=== PATIENT | female | born 1950 | race Caucasian/White ===

== ENCOUNTER 2017-02-21 16:05 | Emergency (ER) | payer MEDICARE, OTHER ==
[2017-02-21] MEDS ORDERED: NORMAL SALINE 1000 ML 1,000 ML IV ONE (16:40)
--- NOTE | 2017-02-21 16:40 | ER Document Report ---
ED Medical Screen (RME) - General Mode of Arrival: Ambulatory Information source: Patient TRAVEL OUTSIDE OF THE [place] IN LAST 30 DAYS: No <TROY AVALOS - Last Filed: 02/21/17 16:52> <RAQUEL MAC - Last Filed: 02/21/17 19:09> - General Chief Complaint: Upper Abdominal Pain Stated Complaint: BACK PAIN Time Seen by Provider: 02/21/17 16:27 Notes: Patient presents to the emergency department today secondary to upper abdominal pain. Patient states 2 weeks ago she was seen at [facility] for lower abdominal pain and she was diagnosed with diverticulitis and put on Cipro/ Flagyl which she finished about a week ago. Patient states the lower abdominal pain seems to have eased off however now she is having this upper abdominal pain that radiates to her back and shoulder blades. Patient denies any urinary symptoms. (TROY AVALOS) - Related Data Allergies/Adverse Reactions: codeine Allergy (Verified 02/21/17 16:24) Past Medical History Renal/ Medical History: Denies: Hx Peritoneal Dialysis <TROY AVALOS - Last Filed: 02/21/17 16:52> Review of Systems - Review of Systems Gastrointestinal: See HPI, Abdominal pain <TROY AVALOS - Last Filed: 02/21/17 16:52> Physical Exam - General General appearance: Other - Appears uncomfortable - Abdominal Tenderness: Tender - Epigastric and RUQ <TROY AVALOS - Last Filed: 02/21/17 16:52> Course <TROY AVALOS - Last Filed: 02/21/17 16:52> - Laboratory Result Diagrams: 02/21/17 17:42 02/21/17 17:42 <RAQUEL MAC - Last Filed: 02/21/17 19:09> - Re-evaluation Re-evalutation: 02/21/17 19:09 I personally performed the services described in the documentation, reviewed and edited the documentation which was dictated to the scribe in my presence, and it accurately records my words and actions. (RAQUEL MAC) - Vital Signs Vital signs: Temp Pulse Resp BP Pulse Ox 97.6 F 72 18 159/65 H 99 02/21/17 16:21 02/21/17 16:21 02/21/17 16:21 02/21/17 16:21 02/21/17 16:21 - Laboratory Laboratory results interpreted by me: 02/21/17 17:42 Direct Bilirubin 0.5 H Scribe Documentation - Scribe Written by Scribe:: Bashir Saucedo, 02/21/2017 1657 acting as scribe for :: Vee <TROY AVALOS - Last Filed: 02/21/17 16:52>
[2017-02-21 18:08] LABS: ABSOLUTE BASOPHILS # (AUTO) 0.1 10^3/uL (0.0-0.2); ABSOLUTE EOSINOPHILS # (AUTO) 0.3 10^3/uL (0.0-0.6); ABSOLUTE LYMPHOCYTES (AUTO) 2.6 10^3/uL (0.5-4.7); ABSOLUTE MONOCYTES (AUTO) 0.6 10^3/uL (0.1-1.4); ABSOLUTE NEUT (AUTO) 3.2 10^3/uL (1.7-8.2); BASOPHILS % (AUTO) 0.9 % (0-2); EOSINOPHILS % (AUTO) 4.2 % (0-6); HEMATOCRIT 41.6 % (36.0-47.0); HEMOGLOBIN 14.3 g/dL (12.0-15.5); HGB HCT DIFFERENCE 1.3; LYMPHOCYTES % (AUTO) 38.5 % (13-45); MEAN CORPUSCULAR HEMOGLOBIN 30.4 pg (27.0-33.4); MEAN CORPUSCULAR HGB CONC 34.5 g/dL (32.0-36.0); MEAN CORPUSCULAR VOLUME 88 fl (80-97); MONOCYTES % (AUTO) 9.4 % (3-13); RED BLOOD COUNT 4.72 10^6/uL (3.72-5.28); RED CELL DISTRIBUTION WIDTH 12.2 % (11.5-14.0); WHITE BLOOD COUNT 6.9 10^3/uL (4.0-10.5)
[2017-02-21] MEDS ORDERED: LIDOCAINE 2% VISCOUS SOLN 20 ML UDCUP PO ONE (18:25)
[2017-02-21] MEDS ORDERED: MAG HYDROX/AL HYDROX/SIMETH SUSP 30 ML UDCUP PO ONE (18:25)
[2017-02-21] MEDS ORDERED: METOCLOPRAMIDE HCL ORAL SOLN 10 MG/10 ML UDCUP PO ONE (18:25)
[2017-02-21 18:32] LABS: ALANINE AMINOTRANSFERASE 34 U/L (9-52); ALBUMIN 4.4 g/dL (3.5-5.0); ALKALINE PHOSPHATASE 88 U/L (38-126); ANION GAP 10 (5-19); ASPARTATE AMINO TRANSFERASE 33 U/L (14-36); BILIRUBIN,DIRECT 0.5 mg/dL (0.0-0.4); BILIRUBIN,TOTAL 0.7 mg/dL (0.2-1.3); BLOOD UREA NITROGEN 13 mg/dL (7-20); CALCIUM 9.7 mg/dL (8.4-10.2); CARBON DIOXIDE 26 mmol/L (22-30); CHLORIDE 105 mmol/L (98-107); CREATINE KINASE 90 U/L (30-135); CREATININE RESULT 0.61 mg/dL (0.52-1.25); GLUCOSE 83 mg/dL (75-110); LIPASE 83.1 U/L (23-300); SODIUM 140.7 mmol/L (137-145)
[2017-02-21 18:42] LABS: CREATINE KINASE MB 0.61 ng/mL (<4.55)
[2017-02-21 18:43] LABS: TROPONIN I < 0.012 ng/mL
--- NOTE | 2017-02-21 18:53 | ER Document Report ---
ED General - General Chief Complaint: Upper Abdominal Pain Stated Complaint: BACK PAIN Time Seen by Provider: 02/21/17 16:27 Mode of Arrival: Ambulatory Notes: Patient is a 66-year-old female with past medical history of recent colitis treated with Cipro and Flagyl finished one week ago, surgical history of a hysterectomy who presents with acute onset of epigastric and right upper quadrant abdominal pain relating through to her back. States this started earlier today and got worse after she ate lunch. No history of similar symptoms in the past. Notes associated nausea without vomiting. Cramping, constant, moderate to severe pain in the upper abdomen. Nothing has been noted to improve her symptoms. No associated diarrhea, chest pain, shortness of breath. She has not seen her primary care doctor regarding today's concerns. TRAVEL OUTSIDE OF THE [place] IN LAST 30 DAYS: No - Related Data Allergies/Adverse Reactions: codeine Allergy (Verified 02/21/17 16:24) Past Medical History - General Information source: Patient - Social History Smoking Status: Never Smoker Frequency of alcohol use: None Drug Abuse: None Lives with: Spouse/Significant other Family History: Reviewed & Not Pertinent Renal/ Medical History: Denies: Hx Peritoneal Dialysis Past Surgical History: Reports: Hx Breast Surgery - right mastectomy Review of Systems - Review of Systems Notes: Constitutional: Negative for fever. HENT: Negative for sore throat. Eyes: Negative for visual changes. Cardiovascular: Negative for chest pain. Respiratory: Negative for shortness of breath. Gastrointestinal: Positive for abdominal pain, negative for vomiting or diarrhea. Genitourinary: Negative for dysuria. Musculoskeletal: Negative for back pain. Skin: Negative for rash. Neurological: Negative for headaches, weakness or numbness. 10 point ROS negative except as marked above and in HPI. Physical Exam - Vital signs Vitals: Temp Pulse Resp BP Pulse Ox 97.6 F 72 18 159/65 H 99 02/21/17 16:21 02/21/17 16:21 02/21/17 16:21 02/21/17 16:21 02/21/17 16:21 Interpretation: Hypertensive Notes: PHYSICAL EXAMINATION: GENERAL: Well-appearing, well-nourished and in no acute distress. HEAD: Atraumatic, normocephalic. EYES: Pupils equal round and reactive to light, extraocular movements intact, sclera anicteric, conjunctiva are normal. ENT: nares patent, oropharynx clear without exudates. Moist mucous membranes. NECK: Normal range of motion, supple without lymphadenopathy LUNGS: Breath sounds clear to auscultation bilaterally and equal. No wheezes rales or rhonchi. HEART: Regular rate and rhythm without murmurs ABDOMEN: Soft, mild tenderness the right upper and right lower quadrant without rebound or guarding. Negative Anthony's sign. Bowel sounds present. EXTREMITIES: Normal range of motion, no pitting or edema. No cyanosis. NEUROLOGICAL: No focal neurological deficits. Moves all extremities spontaneously and on command. PSYCH: Normal mood, normal affect. SKIN: Warm, Dry, normal turgor, no rashes or lesions noted. Course - Re-evaluation Re-evalutation: 02/21/17 18:53 Patient presents with epigastric abdominal pain with associated reflux symptoms most consistent with likely gastritis. Patient does have right upper and right lower quadrant abdominal tenderness on exam Right upper quadrant ultrasound does not demonstrate any evidence of acute cholecystitis or cholelithiasis. Lipase is normal. No LFT changes. Based on history and exam, I do not suspect ACS, pulmonary embolus, SBO, mesenteric ischemia, acute pancreatitis, biliary pathology, or an abdominal aortic dissection. However, patient did have persistent right upper and right lower quadrant abdominal pain exam despite efforts to reduce her pain using a GI cocktail and famotidine. Given the absence of any alternative explanation at this time and her persistence of pain , will proceed with CT of the abdomen and pelvis to evaluate for an ongoing of her prior colitis, perforation, less likely mesenteric ischemia. 02/21/17 20:44 CT scan is unremarkable without any evidence of acute pathology. Vessels are noted be patent and clear without evidence of stenosis to suggest an acute mesenteric ischemia. Repeat abdominal exam remains without any findings. She has tolerated oral intake without difficulty. Have a plate to the patient at this point her symptoms are most consistent with gastritis but that she needs to be vigilant to monitor for any worsening symptoms and is to follow closely with her primary care doctor for repeat abdominal exam in the next 24-48 hours. I've also encouraged close outpatient follow-up with her GI doctor.At this time will discharge with return precautions and follow-up recommendations. Verbal discharge instructions given a the bedside and opportunity for questions given. Medication warnings reviewed. Patient is in agreement with this plan and has verbalized understanding of return precautions and the need for primary care follow-up in the next 24-72 hours. - Vital Signs Vital signs: Temp Pulse Resp BP Pulse Ox 97.6 F 72 18 159/65 H 99 02/21/17 16:21 02/21/17 16:21 02/21/17 16:21 02/21/17 16:21 02/21/17 16:21 - Laboratory Result Diagrams: 02/21/17 17:42 02/21/17 17:42 Laboratory results interpreted by me: 02/21/17 17:42 Direct Bilirubin 0.5 H - Diagnostic Test Radiology reviewed: Reports reviewed - EKG Interpretation by Me Additional EKG results interpreted by me: 02/21/17 20:44 Normal sinus rhythm. Rate 71. No ST elevations or depressions. QTC is 426. Discharge - Discharge Clinical Impression: Abdominal pain Qualifiers: Abdominal location: upper abdomen, unspecified Qualified Code(s): R10.10 - Upper abdominal pain, unspecified Condition: Good Disposition: HOME, SELF-CARE Additional Instructions: Your symptoms appear to be most consistent with stomach or upper intestinal irritation. Your evaluation here today has not demonstrated an alternative cause for your symptoms. Please begin taking famotidine 40 mg in the morning and 40 mg at night. This medicine can be purchased directly [id number]. You may also take medicine such as Pepto-Bismol or Tums to assist with your pain. Please follow closely with your primary care doctor in the next 24-48 hours regarding today's emergency department visit. Please return immediately if you develop persistent vomiting, worsening pain, again having bloody bowel movements, develop a fever greater than 100.4F, or have any other symptoms that are worrisome to you. Prescriptions: Sucralfate [Carafate 1 gm Tablet] 1 gm PO ACHS #120 tablet
[2017-02-21] MEDS ORDERED: FAMOTIDINE 20 MG TABLET PO ONE (18:56)
[2017-02-21] MEDS ORDERED: ONDANSETRON HCL INJ/PF 4 MG/2 ML SDV IV ONE (19:14)
[2017-02-21] MEDS ORDERED: MORPHINE SULFATE 10 MG/ML INJ IV PRN (19:14)
[2017-02-21 19:15] LABS: APPEARANCE,URINE CLEAR; BILIRUBIN,URINE NEGATIVE (NEGATIVE); GLUCOSE, URINE NEGATIVE (NEGATIVE); KETONES,URINE NEGATIVE (NEGATIVE); LEUKOCYTE ESTERASE,URINE NEGATIVE (NEGATIVE); NITRITE,URINE NEGATIVE (NEGATIVE); PROTEIN,URINE NEGATIVE (NEGATIVE); URINE SPECIFIC GRAVITY 1.004; UROBILINOGEN,URINE NEGATIVE mg/dL (<2.0)
--- NOTE | 2017-02-21 20:31 | EKG REPORT ---
SEVERITY:- NORMAL ECG - SINUS RHYTHM : Confirmed by: Delfino Coats 21-Feb-2017 20:31:21
[2017-02-21 21:23] VITALS: BP 120/52
[2017-02-21] MEDS ORDERED: FLUCONAZOLE 100 MG TABLET PO ONE (21:51)
== END 2017-02-21 21:55 | disposition home or self-care (01) ==
LOC: ER 16:05
DX: R10.10 Upper abdominal pain, unspecified (principal); Z88.6 Allergy status to analgesic agent; Z90.710 Acquired absence of both cervix and uterus
CPT/HCPCS: 93005; 94640; 99284; 36415; 82553; 82550; 83690; 85025; 80053; 81001; 84484; 71020; 76705; 74177; 93010; A9270 ×3; J3490; J2270; J2405; J7030

== ENCOUNTER 2017-02-28 09:18 | Day surgery (SDC) | payer MEDICARE, OTHER ==
[~2017-02-28 09:18] MED LIST: PROPOFOL INJ 200 MG/20 ML VIAL IV ONE
[2017-02-28 11:53] VITALS: BP 139/78
--- NOTE | 2017-02-28 13:14 | Operative Report ---
Operative Report DATE OF SURGERY: 02/28/17 Operative Report: The risks, benefits and alternatives of the procedure including risks of bleeding, perforation requiring surgery are explained to the patient detail and informed consent was obtained. Patient was taken back to the endoscopy suite and placed in the left, lateral decubital position. Timeout was called. Conscious sedation medications provided. A rectal examination was done which did not reveal any masses, tears or fissures. An Olympus endoscope was inserted into the patient's rectum. The scope was then gradually advanced all the way to the cecum. The patient has a very difficult sigmoid area. Patient has significant diverticulosis in the area with peridiverticular hypertrophy. This along with the fact that there is some redundancy may be area difficult to traverse. However once this area was passed the scope was then easily advanced all the way to the cecum. The cecum was identified by the usual anatomical landmarks including the ileocecal valve as well as the appendiceal office. Photodocumentation was obtained. The scope was then sequentially pulled back. The rest segments of the colon including the ascending colon, hepatic flexure, transverse colon, splenic flexure, descending colon and finally to the rectosigmoid portions of the colon. Retroflexion maneuver was performed. The risks benefits and alternatives of the procedure explained to the patient in detail and informed consent is obtained.A GIF Olympus video scope was inserted into the patient's mouth and hypopharynx, the esophagus is identified intubated and insufflated, the scope was then advanced through the esophagus stomach and duodenum, retroflexion maneuver is done, the esophagus stomach and first and second portions of the duodenum examined PREOPERATIVE DIAGNOSIS: Epigastric pain. Abdominal pain. Known history of diverticulosis POSTOPERATIVE DIAGNOSIS: Severe diverticulosis, no evidence of diverticulitis. Internal hemorrhoids. Right-sided inflammation status post biopsy. Gastritis status post biopsy to rule out Helicobacter pylori OPERATION: Colonoscopy with biopsy. EGD with biopsy SURGEON: ASHLEY REA ANESTHESIA: LMAC TISSUE REMOVED OR ALTERED: As described above COMPLICATIONS: None. ESTIMATED BLOOD LOSS: None. INTRAOPERATIVE FINDINGS: As noted above. No polyps noted. No AVMs noted. PROCEDURE: Patient tolerated the procedure well. No immediate postprocedure complications are noted. Patient discharged in good condition. Discharge date 02/28/2017. Discharge diet: Regular. Discharge activity: Regular. 2-3 week follow-up to discuss findings. We will wait on biopsies. Patient is instructed to call the office or proceed to the emergency room should there be any further problems or questions.
== END 2017-02-28 11:43 | disposition home or self-care (01) ==
LOC: END 09:18
PROVIDERS: ATTEND Internal Medicine Gastroenterology
PROC: 0DB68ZX Excision of Stomach, Via Natural or Artificial Opening Endoscopic, Diagnostic (ICD-10-PCS; principal; 2017-02-28 13:00)
PROC: 0DBF8ZX Excision of Right Large Intestine, Via Natural or Artificial Opening Endoscopic, Diagnostic (ICD-10-PCS; 2017-02-28 13:00)
DX: K57.30 Diverticulosis of large intestine without perforation or abscess without bleeding (principal); K64.8 Other hemorrhoids; K52.9 Noninfective gastroenteritis and colitis, unspecified; K29.50 Unspecified chronic gastritis without bleeding; I10 Essential (primary) hypertension; K21.9 Gastro-esophageal reflux disease without esophagitis; Z79.899 Other long term (current) drug therapy; Z88.5 Allergy status to narcotic agent
CPT/HCPCS: 43239; 45380; 88342 ×2; 88305 ×2; J2704; 740

== ENCOUNTER 2017-04-01 14:00 | Observation (INO) | payer MEDICARE, OTHER ==
[~2017-04-01 14:00] MED LIST changes: +AMINOPHYLLINE INJ/PF 250 MG/10 ML SDV IV ONE; -PROPOFOL INJ 200 MG/20 ML VIAL IV ONE; +REGADENOSON INJ 0.4 MG/5 ML DISP.SYRIN IV ONE
--- NOTE | 2017-04-01 15:16 | ER Document Report ---
ED Medical Screen (RME) - General Mode of Arrival: Ambulatory Information source: Patient TRAVEL OUTSIDE OF THE [place] IN LAST 30 DAYS: No <MARIO HENNESSY - Last Filed: 04/01/17 15:11> <JEWELL NICOLAS - Last Filed: 04/02/17 14:40> - General Chief Complaint: Chest Pain Stated Complaint: CHEST PAIN Time Seen by Provider: 04/01/17 15:10 Notes: 66 yo female presents to ed for left sided chest pain with radition mid epigastrium and back. She had similar symptoms a month ago and was dx with diverticulosis and diverticulitis. Started on cipro and medication for GERD. She has hx of right mastectomy for breast cancer. Pain is constant. 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 This patient was seen in PIT and will be reassessed with complete hx and physical in the ed by another provider. (MARIO HENNESSY) - Related Data Allergies/Adverse Reactions: codeine Allergy (Severe, Verified 04/01/17 14:16) N/V SEVERE Past Medical History - Past Medical History Cardiac Medical History: Reports: Hx Hypertension Denies: Hx Coronary Artery Disease, Hx Heart Attack Pulmonary Medical History: Reports: Hx Pneumonia - SEPTEMBER 2015 Denies: Hx Asthma, Hx Bronchitis, Hx COPD Neurological Medical History: Denies: Hx Cerebrovascular Accident, Hx Seizures Renal/ Medical History: Denies: Hx Peritoneal Dialysis Musculoskeltal Medical History: Reports Hx Arthritis - HANDS, FEET AND LOWER BACK Past Surgical History: Reports: Hx Breast Surgery - right mastectomy - Immunizations Hx Diphtheria, Pertussis, Tetanus Vaccination: Yes <MARIO HENNESSY - Last Filed: 04/01/17 15:11> Course - Laboratory Result Diagrams: 04/01/17 16:42 04/01/17 16:42 <JEWELL NICOLAS - Last Filed: 04/02/17 14:40> - Vital Signs Vital signs: Temp Pulse Resp BP Pulse Ox 98.0 F 85 20 150/66 H 99 04/02/17 11:32 04/02/17 11:32 04/02/17 11:32 04/02/17 11:32 04/02/17 11:32 Doctor's Discharge <MARIO HENNESSY - Last Filed: 04/01/17 15:11> <JEWELL NICOLAS - Last Filed: 04/02/17 14:40> - Discharge Clinical Impression: Chest pain, rule out acute myocardial infarction Disposition: ADMITTED OBSERVATION
[2017-04-01] MEDS ORDERED: ASPIRIN 81 MG TABLET, CHEWABLE PO ONE (15:19)
[2017-04-01] MEDS ORDERED: LIDOCAINE 2% VISCOUS SOLN 20 ML UDCUP PO ONE (15:20)
[2017-04-01] MEDS ORDERED: MAG HYDROX/AL HYDROX/SIMETH SUSP 30 ML UDCUP PO ONE (15:20)
[2017-04-01] MEDS ORDERED: METOCLOPRAMIDE HCL ORAL SOLN 10 MG/10 ML UDCUP PO ONE (15:20)
--- NOTE | 2017-04-01 16:23 | RADIOLOGY REPORT (SQ) ---
EXAM DESCRIPTION: CHEST PA/LAT COMPLETED DATE/TIME: 04/01/2017 4:07 pm REASON FOR STUDY: chest pain COMPARISON: None. EXAM PARAMETERS: NUMBER OF VIEWS: two views TECHNIQUE: Digital Frontal and Lateral radiographic views of the chest acquired. RADIATION DOSE: NA LIMITATIONS: none FINDINGS: LUNGS AND PLEURA: No opacities, masses or pneumothorax. No pleural effusion. MEDIASTINUM AND HILAR STRUCTURES: No masses or contour abnormalities. HEART AND VASCULAR STRUCTURES: Heart normal size. No evidence for failure. BONES: No acute findings. HARDWARE: Surgical clips are identified in the right axillary region. OTHER: No other significant finding. IMPRESSION: NO SIGNIFICANT RADIOGRAPHIC FINDING IN THE CHEST. TECHNICAL DOCUMENTATION: JOB ID: [id number] [employer]- All Rights Reserved
[2017-04-01 16:56] LABS: ABSOLUTE BASOPHILS # (AUTO) 0.1 10^3/uL (0.0-0.2); ABSOLUTE EOSINOPHILS # (AUTO) 0.2 10^3/uL (0.0-0.6); ABSOLUTE LYMPHOCYTES (AUTO) 2.6 10^3/uL (0.5-4.7); ABSOLUTE MONOCYTES (AUTO) 0.6 10^3/uL (0.1-1.4); ABSOLUTE NEUT (AUTO) 4.1 10^3/uL (1.7-8.2); BASOPHILS % (AUTO) 0.8 % (0-2); EOSINOPHILS % (AUTO) 2.6 % (0-6); HEMATOCRIT 41.2 % (36.0-47.0); HEMOGLOBIN 13.7 g/dL (12.0-15.5); HGB HCT DIFFERENCE -0.1; LYMPHOCYTES % (AUTO) 33.7 % (13-45); MEAN CORPUSCULAR HEMOGLOBIN 29.4 pg (27.0-33.4); MEAN CORPUSCULAR HGB CONC 33.3 g/dL (32.0-36.0); MEAN CORPUSCULAR VOLUME 88 fl (80-97); MONOCYTES % (AUTO) 8.1 % (3-13); RED BLOOD COUNT 4.67 10^6/uL (3.72-5.28); RED CELL DISTRIBUTION WIDTH 12.7 % (11.5-14.0); SEGMENTED NEUTROPHILS % (AUTO) 54.8 % (42-78); WHITE BLOOD COUNT 7.6 10^3/uL (4.0-10.5)
[2017-04-01 17:19] LABS: ALANINE AMINOTRANSFERASE 42 U/L (9-52); ALBUMIN 4.2 g/dL (3.5-5.0); ALKALINE PHOSPHATASE 83 U/L (38-126); ANION GAP 12 (5-19); ASPARTATE AMINO TRANSFERASE 22 U/L (14-36); BILIRUBIN,DIRECT 0.2 mg/dL (0.0-0.4); BILIRUBIN,TOTAL 0.4 mg/dL (0.2-1.3); BLOOD UREA NITROGEN 16 mg/dL (7-20); CALCIUM 9.3 mg/dL (8.4-10.2); CARBON DIOXIDE 23 mmol/L (22-30); CHLORIDE 107 mmol/L (98-107); CREATINE KINASE 46 U/L (30-135); CREATININE RESULT 0.65 mg/dL (0.52-1.25); GLUCOSE 80 mg/dL (75-110); LIPASE 92.9 U/L (23-300); SODIUM 142.2 mmol/L (137-145); TOTAL PROTEIN 7.3 g/dL (6.3-8.2)
--- NOTE | 2017-04-01 17:27 | ER Document Report ---
ED General - General Mode of Arrival: Ambulatory Information source: Patient TRAVEL OUTSIDE OF THE [place] IN LAST 30 DAYS: No - HPI Patient complains to provider of: Chest and Abdominal Pain Onset: Other - 2 days ago Associated symptoms: Other - see notes above <MARIO AREVALO - Last Filed: 04/01/17 19:13> <PATRICIODENISEMINO - Last Filed: 04/01/17 20:02> - General Chief Complaint: Chest Pain Stated Complaint: CHEST PAIN Time Seen by Provider: 04/01/17 15:10 Notes: 66-year-old female with history of diverticulosis and diverticulitis presents to the ED complaining of constant diffuse abdominal pain that started 2 days ago , worsened yesterday, and has radiated to the chest and between the bilateral shoulder blades earlier today. Patient is also complaining of nausea and diarrhea that started this morning. Patient denies any blood in stool. Patient has been going through a 2 month episode of diverticulitis and has recently finished antibiotics (Cipro) 1 week ago. Patient reports that her last episode of diverticulitis was also accompanied with chest pain. Patient had an endoscopy performed by Dr. Dsouza and was advised to change her diet to reduce risk of infection. (MARIO AREVALO) - Related Data Allergies/Adverse Reactions: codeine Allergy (Severe, Verified 04/01/17 14:16) N/V SEVERE Past Medical History - General Information source: Patient - Social History Smoking Status: Never Smoker Chew tobacco use (# tins/day): No Frequency of alcohol use: None Drug Abuse: None Family History: Reviewed & Not Pertinent Patient has suicidal ideation: No Patient has homicidal ideation: No - Past Medical History Cardiac Medical History: Reports: Hx Hypertension Pulmonary Medical History: Reports: Hx Pneumonia - SEPTEMBER 2015 Musculoskeltal Medical History: Reports Hx Arthritis - HANDS, FEET AND LOWER BACK Past Surgical History: Reports: Hx Breast Surgery - right mastectomy - Immunizations Hx Diphtheria, Pertussis, Tetanus Vaccination: Yes <MARIO AREVALO - Last Filed: 04/01/17 19:13> Review of Systems - Review of Systems Constitutional: No symptoms reported EENT: No symptoms reported Cardiovascular: See HPI, Chest pain Respiratory: No symptoms reported Gastrointestinal: See HPI, Abdominal pain, Diarrhea, Nausea. denies: Black stools, Rectal bleeding Genitourinary: No symptoms reported Female Genitourinary: No symptoms reported Musculoskeletal: No symptoms reported Skin: No symptoms reported Hematologic/Lymphatic: No symptoms reported Neurological/Psychological: No symptoms reported -: Yes All other systems reviewed and negative <MARIO AREVALO - Last Filed: 04/01/17 19:13> Physical Exam <MARIO AREVALO - Last Filed: 04/01/17 19:13> <MINO ROACH - Last Filed: 04/01/17 20:02> - Vital signs Vitals: Temp Pulse Resp BP Pulse Ox 97.7 F 84 18 144/73 H 97 04/01/17 14:17 04/01/17 14:17 04/01/17 14:17 04/01/17 14:17 04/01/17 14:17 - Notes Notes: GENERAL: Alert, interacts well. No acute distress. HEAD: Normocephalic, atraumatic. EYES: Pupils equal, round, and reactive to light. Extraocular movements intact. ENT: Oral mucosa moist, tongue midline. NECK: Full range of motion. Supple. Trachea midline. LUNGS: Clear to auscultation bilaterally, no wheezes, rales, or rhonchi. No respiratory distress. HEART: Regular rate and rhythm. No murmurs, gallops, or rubs. ABDOMEN: Soft. Non-distended. Bowel sounds present in all 4 quadrants. Mild left upper quadrant and diffuse lower abdomen tenderness to palpation, with small amount of guarding, but no rebound or rigidity. EXTREMITIES: Moves all 4 extremities spontaneously. No edema, radial and dorsalis pedis pulses 2/4 bilaterally. No cyanosis. NEUROLOGICAL: Alert and oriented x3. Normal speech. PSYCH: Normal affect, normal mood. SKIN: Warm, dry, normal turgor. No rashes or lesions noted. (MARIO AREVALO) Course - Laboratory Result Diagrams: 04/01/17 16:42 04/01/17 16:42 <MARIO AREVALO - Last Filed: 04/01/17 19:13> - Laboratory Result Diagrams: 04/01/17 16:42 04/01/17 16:42 <MINO ROACH - Last Filed: 04/01/17 20:02> - Re-evaluation Re-evalutation: 04/01/17 19:56 CBC unremarkable, coags normal, CMP unremarkable, initial cardiac enzymes negative, lipase normal. Chest x-ray shows no acute process, CT scan of the abdomen and pelvis was ordered as she states this is similar to her last episode of diverticulitis, this was completely negative. I am concerned by abdominal pain radiating to her chest and back in a 66-year-old female who has never been assessed for cardiac risk factors and does not have a history of stress test. Patient is given aspirin, discussed with the international guest coordinator Dr. Torres who agrees to admit the patient to his service in observation status. Family is agreeable to this plan. EKG is nonischemic. (MINO ROACH) - Vital Signs Vital signs: Temp Pulse Resp BP Pulse Ox 97.7 F 84 18 144/73 H 97 04/01/17 14:17 04/01/17 14:17 04/01/17 14:17 04/01/17 14:17 04/01/17 14:17 - EKG Interpretation by Me Additional EKG results interpreted by me: 04/01/17 19:58 EKG shows sinus rhythm at a rate of 89, normal axis, normal intervals, no ST segment elevation or depression, no T-wave inversion although there is nonspecific T-wave flattening in aVL, rapid R-wave progression per my interpretation. (MINO ROACH) Discharge <MARIO AREVALO - Last Filed: 04/01/17 19:13> - Discharge Admitting Provider: Gemini Torres Unit Admitted: Telemetry <MINO ROACH - Last Filed: 04/01/17 20:02> - Discharge Clinical Impression: Chest pain, rule out acute myocardial infarction Referrals: GILBERTO SOTO MD [Primary Care Provider] - Follow up as needed Scribe Attestation: 04/01/17 20:02 I personally performed the services described in the documentation, reviewed and edited the documentation which was dictated to the scribe in my presence, and it accurately records my words and actions. (MINO ROACH) Scribe Documentation - Scribe Written by Bashir:: Bashir Ramirez, 04/01/2017 1930 acting as scribe for :: Curtis <MARIO AREVALO - Last Filed: 04/01/17 19:13>
[2017-04-01 17:29] LABS: CREATINE KINASE MB 0.67 ng/mL (<4.55)
[2017-04-01 17:32] LABS: TROPONIN I < 0.012 ng/mL
[2017-04-01 17:54] LABS: PROTHROMBIN TIME 13.3 SEC (11.4-15.4)
[2017-04-01 17:55] LABS: PARTIAL THROMBOPLASTIN TIME 30.5 SEC (23.5-35.8)
[2017-04-01] MEDS ORDERED: ONDANSETRON HCL INJ/PF 4 MG/2 ML SDV IV ONE (18:01)
[2017-04-01] MEDS ORDERED: MORPHINE SULFATE 10 MG/ML INJ IV ONE (18:01)
--- NOTE | 2017-04-01 18:55 | RADIOLOGY REPORT (SQ) ---
EXAM DESCRIPTION: CT ABD/PELVIS WITH IV ONLY COMPLETED DATE/TIME: 04/01/2017 6:41 pm REASON FOR STUDY: recurrent low abd pain, diverticulitis COMPARISON: None. TECHNIQUE: CT scan of the abdomen and pelvis performed using helical scanning technique with dynamic intravenous contrast injection. No oral contrast. Images reviewed with lung, soft tissue, and bone windows. Reconstructed coronal and sagittal MPR images reviewed. Delayed images for evaluation of the urinary system also acquired. All images stored on PACS. All CT scanners at this facility use dose modulation, iterative reconstruction, and/or weight based d osing when appropriate to reduce radiation dose to as low as reasonably achievable (ALARA). [facility]: Dose Right [facility]: CareDose [facility]: Dose Right [facility]: Teradose 4D [facility]: [employer] CONTRAST TYPE AND DOSE: contrast/concentration: Isovue 370.00 mg/ml; Total Contrast Delivered: 62.0 ml; Total Saline Delivered: 60.0 ml RENAL FUNCTION: Creatinine 0.7 BUN 16 RADIATION DOSE: Up-to-date CT equipment and radiation dose reduction techniques were employed. CTDIv ol: 4.9 - 6.1 mGy. DLP: 546 mGy-cm.. LIMITATIONS: None. FINDINGS: LOWER CHEST: No significant lung findings. There is a small pericardial effusion. Maximu m depth of pericardial fluid is about 10 mm. LIVER: Normal size. No masses or dilated ducts. SPLEEN: Normal size. No focal lesions. PANCREAS: No masses. No significant calcifications. No adjacent inflammation or peripancreatic fluid collections. Pancreatic duct not dilated. GALLBLADDER: No identified stones by CT criteria. No inflammatory changes to suggest cholecystitis. ADRENAL GLANDS: No significant masses or asymmetry. RIGHT KIDNEY AND URETER: No solid masses. No significant calcifications. No hydronephrosis or hyd roureter. LEFT KIDNEY AND URETER: No solid masses. No significant calcifications. No hydronephrosis or hydr oureter. AORTA AND VESSELS: No aneurysm. No dissection. Renal arteries, SMA, celiac without stenosis. RETROPERITONEUM: No retroperitoneal adenopathy, hemorrhage or masses. BOWEL AND PERITONEAL CAVITY: Large numbers of diverticula arise from the descending and sigmoid colon . There is no evidence of significant associated inflammatory changes. APPENDIX: Normal. PELVIS: Urinary bladder is normal. The uterus is absent. There is no adnexal mass or fluid collecti on. ABDOMINAL WALL: No masses. No hernias. BONES: No significant or acute findings. OTHER: No other significant finding. IMPRESSION: 1. There is a small pericardial effusion. 2. There is diverticulosis coli. There is no evidence of acute inflammation. TECHNICAL DOCUMENTATION: JOB ID: [id number] Quality ID # [id number]: Final reports with documentation of one or more dose reduction techniques (e.g., Au tomated exposure control, adjustment of the mA and/or kV according to patient size, use of iterative reconstruction technique) 2010 [employer]- All Rights Reserved
[2017-04-01] MEDS ORDERED: ASPIRIN 325 MG TABLET PO ONE (19:05)
[2017-04-01] MEDS ORDERED: SUCRALFATE 1 GM TABLET PO ONE (19:59)
[2017-04-01] MEDS ORDERED: ACETAMINOPHEN 325 MG TABLET PO PRN (20:01)
[2017-04-01] MEDS ORDERED: ZOLPIDEM TARTRATE 5 MG TABLET PO PRN (20:01)
[2017-04-01] MEDS: NITROGLYCERIN 0.4 MG/TAB 25 TAB/BOTTLE SL PRN (20:02)
[2017-04-01] MEDS ORDERED: ATORVASTATIN CALCIUM 80 MG TABLET PO SCH (22:00)
[2017-04-01] MEDS: HEPARIN SOD (PORCINE) 5,000 UNIT/ML 1 ML SYRINGE SUBCUT SCH (22:42)
[2017-04-01 22:56] LABS: CREATINE KINASE MB 0.81 ng/mL (<4.55)
[2017-04-01 23:02] LABS: TROPONIN I < 0.012 ng/mL
--- NOTE | 2017-04-01 23:55 | PDOC H&P ---
History of Present Illness Admission Date/PCP: 04/01/17 19:56 GILBERTO SOTO MD Patient complains of: Chest pain History of Present Illness: YUDELKA LEMUS is a 66 year old female with a past medical history of diverticulitis and GERD who has been her usual state of health until approximately 4 hours prior to presentation with epigastric pain which radiated to the left breast then to the left shoulder and back which was 3 out of 5 intensity associated with shortness of breath nausea without vomiting and diaphoresis. Lasted several hours she did not note any alleviating or exacerbating factors. She denies previous episode, change in medications or current pain. In the emergency room her workup was unremarkable and is referred to the hospitalist for evaluation. Past Medical History Cardiac Medical History: Reports: Hypertension Denies: Coronary Artery Disease, Myocardial Infarction Pulmonary Medical History: Reports: Pneumonia - SEPTEMBER 2015 Denies: Asthma, Bronchitis, Chronic Obstructive Pulmonary Disease (COPD) Neurological Medical History: Denies: Seizures GI Medical History: Reports: Gastroesophageal Reflux Disease, Other - Diverticulitis Musculoskeltal Medical History: Reports: Arthritis - HANDS, FEET AND LOWER BACK Hematology: Reports: Anemia Social History Information Source: Patient Lives with: Family Smoking Status: Never Smoker Hx Recreational Drug Use: No Drugs: None - Advance Directive Resuscitation Status: Full Code Family History Family History: CAD, Hypertension Parental Family History Reviewed: Yes Children Family History Reviewed: Yes Sibling(s) Family History Reviewed.: Yes Medication/Allergy Home Medications: Omeprazole 20 mg PO DAILY 04/01/17 Allergies/Adverse Reactions: codeine Allergy (Severe, Verified 04/01/17 14:16) N/V SEVERE Review of Systems Constitutional: ABSENT: chills, fever(s), headache(s), weight gain, weight loss Eyes: ABSENT: visual disturbances Ears: ABSENT: hearing changes Cardiovascular: ABSENT: chest pain, dyspnea on exertion, edema, orthropnea, palpitations Respiratory: ABSENT: cough, hemoptysis Gastrointestinal: ABSENT: abdominal pain, constipation, diarrhea, hematemesis, hematochezia, nausea, vomiting Genitourinary: ABSENT: dysuria, hematuria Musculoskeletal: ABSENT: joint swelling Integumentary: ABSENT: rash, wounds Neurological: ABSENT: abnormal gait, abnormal speech, confusion, dizziness, focal weakness, syncope Psychiatric: ABSENT: anxiety, depression, homidical ideation, suicidal ideation Endocrine: ABSENT: cold intolerance, heat intolerance, polydipsia, polyuria Hematologic/Lymphatic: ABSENT: easy bleeding, easy bruising Physical Exam Vital Signs: Temp Pulse Resp BP Pulse Ox 97.7 F 84 13 127/54 H 98 04/01/17 14:17 04/01/17 14:17 04/01/17 22:01 04/01/17 22:01 04/01/17 22:01 General appearance: PRESENT: no acute distress, well-developed, well-nourished Head exam: PRESENT: atraumatic, normocephalic Eye exam: PRESENT: conjunctiva pink, EOMI, PERRLA. ABSENT: scleral icterus Ear exam: PRESENT: normal external ear exam Mouth exam: PRESENT: moist, tongue midline Neck exam: ABSENT: carotid bruit, JVD, lymphadenopathy, thyromegaly Respiratory exam: PRESENT: clear to auscultation amber. ABSENT: rales, rhonchi, wheezes Cardiovascular exam: PRESENT: RRR. ABSENT: diastolic murmur, rubs, systolic murmur Pulses: PRESENT: normal dorsalis pedis pul Vascular exam: PRESENT: normal capillary refill GI/Abdominal exam: PRESENT: normal bowel sounds, soft. ABSENT: distended, guarding, mass, organolmegaly, rebound, tenderness Rectal exam: PRESENT: deferred Extremities exam: PRESENT: full ROM. ABSENT: calf tenderness, clubbing, pedal edema Neurological exam: PRESENT: alert, awake, oriented to person, oriented to place , oriented to time, oriented to situation, CN II-XII grossly intact. ABSENT: motor sensory deficit Psychiatric exam: PRESENT: appropriate affect, normal mood. ABSENT: homicidal ideation, suicidal ideation Skin exam: PRESENT: dry, intact, warm. ABSENT: cyanosis, rash Results Laboratory Results: 04/01/17 22:12 CK-MB (CK-2) 0.81 Troponin I < 0.012 Impressions: Chest X-Ray 04/01/17 15:19 IMPRESSION: NO SIGNIFICANT RADIOGRAPHIC FINDING IN THE CHEST. Abdomen/Pelvis CT 04/01/17 17:24 IMPRESSION: 1. There is a small pericardial effusion. 2. There is diverticulosis coli. There is no evidence of acute inflammation. Assessment & Plan - Diagnosis (1) Chest pain, rule out acute myocardial infarction Is this a current diagnosis for this admission?: YesPlan: Atypical chest pain though the patient's pain is atypical there are multiple risk factors for coronary artery disease and subsequently will observe and evaluation of acute coronary syndrome versus coronary artery disease with anginal equivalents. Cardiac monitoring blood pressure Q6 hours ,TSH, lipid profile, serial cardiac enzymes and cardiac stress test (2) GERD (gastroesophageal reflux disease) Is this a current diagnosis for this admission?: YesPlan: Outpatient regiment and as needed symptomatic management. - Time Time Spent: 30 to 50 Minutes
[2017-04-02 01:35] LABS: APPEARANCE,URINE CLEAR; BILIRUBIN,URINE NEGATIVE (NEGATIVE); GLUCOSE, URINE NEGATIVE (NEGATIVE); KETONES,URINE NEGATIVE (NEGATIVE); LEUKOCYTE ESTERASE,URINE NEGATIVE (NEGATIVE); NITRITE,URINE NEGATIVE (NEGATIVE); PROTEIN,URINE NEGATIVE (NEGATIVE); URINE SPECIFIC GRAVITY 1.049; UROBILINOGEN,URINE NEGATIVE mg/dL (<2.0)
[2017-04-02 01:51] LABS: BACTERIA,URINE TRACE /HPF
[2017-04-02 05:20] LABS: CREATINE KINASE 42 U/L (30-135); Direct HDL 38 mg/dL (>40); TRIGLYCERIDES 211 mg/dL (<150)
[2017-04-02 05:31] LABS: DIRECT LDL 125 mg/dL (<100)
[2017-04-02 05:32] LABS: CREATINE KINASE MB 0.91 ng/mL (<4.55)
[2017-04-02 05:38] LABS: TROPONIN I < 0.012 ng/mL; VLDL CHOLESTEROL 42.2 mg/dL (10-31)
[2017-04-02] MEDS: HEPARIN SOD (PORCINE) 5,000 UNIT/ML 1 ML SYRINGE SUBCUT SCH ×2 (05:41→14:49)
[2017-04-02] MEDS: NITROGLYCERIN 0.4 MG/TAB 25 TAB/BOTTLE SL PRN (11:37)
[2017-04-02] MEDS ORDERED: KETOROLAC TROMETHAMINE INJ/PF 30 MG/1 ML SDV ONE (11:49)
--- NOTE | 2017-04-02 12:11 | DRAGON STRESS TEST REPORT ---
INTRAVENOUS LEXISCAN CARDIOLITE STRESS TEST USING SINGLE PHOTON EMMISION COMPUTERIZED TOMOGRAPHIC. DATE OF PROCEDURE: April 02, 2017 INDICATION : Chest pain CARDIAC RISK FACTORS: Dyslipidemia and family history of CAD RESTING EKG: Sinus rhythm without any baseline ST-T wave changes STRESS EKG: No significant changes noted with LexiScan bolus REASON FOR TERMINATION: Protocol. PROCEDURE REPORT: Baseline heart rate 68 beats per minute with blood pressure of 137/78. Patient had no significant complaints. Heart rate at 2 minutes post bolus 106 with a blood pressure of 139/57. 3 minutes post bolus heart rate 89 with blood pressure of 141/72. No significant EKG changes were noted. Patient had no significant complaints during the procedure or postprocedure. Patient injected with Aminophyllin 75 mg at 3 minutes or later after Lexiscan bolus. CONCLUSIONS: Normal EKG and hemodynamic response to IV LexiScan. NUCLEAR DATA: At rest the patient was given 10.19 millicuries of technetium 99 sestamibi injected intravenously. As per protocol rest gated SPECT images were obtained. Subsequently the patient was given intravenous LexiScan at a dose of 0.4 mg in 5 mL intravenously, followed by flush with normal saline. Subsequently the stress dose of 31.1 millicuries of technetium 99 sestamibi was injected intravenously. As per protocol stress gated images were obtained. NUCLEAR INTERPRETATION: Both raw and processed data were used for interpretation. Visual, qualitative, computer-generated quantitative data was used. There was good myocardial uptake of technetium compound. Motion artifact and soft tissue attenuations were noted. Increased visceral uptake was noted. No definitive areas of transient perfusion defect noted. No definitive areas of fixed perfusion defect or scars noted. EKG gated imaging showed LV EF at 58 %, rest and stress gated EF similar visually. T. I D. ratio was 1.16. Lung heart ratio noted to be within normal limits 0.34. No significant extracardiac and abnormal radiotracer activities were noted. RV free wall uptake was noted to be []. IMPRESSION: Also refer to comments under nuclear interpretation. Also test results needs to be interpreted in the context of pretest probability. 1. There is no definitive scintigraphic evidence of LexiScan induced myocardial ischemia. 2. There is no definitive scintigraphic evidence of myocardial infarction/scar. 3. EKG gated imaging shows left ejection fraction of approximately 58 %. 4. Clinical correlation requested as occasionally single vessel disease or balanced ischemia could be missed. In approximately 10% of the cases Lexiscan may not cause adequate vasodilatory stress. RECOMMENDATIONS: Aggressive risk factor modification, medical therapy. Clinical correlation with echocardiogram derived ejection fraction. Inability to exercise by itself can lead to increased cardiovascular event risks. Consider cardiology consultation and or follow-up if clinically indicated. I AM AVAILABLE FOR CARDIOLOGY CONSULTATION AND FOLLOWUP IF REQUESTED BY PMD Delfino Coats M.D., [employer], Board certified in cardiovascular diseases, Nuclear cardiology, Echocardiography Cardiac CT and cardiac MRI Ph. [phone] [facility]
[2017-04-02 12:41] LABS: CREATINE KINASE MB 0.71 ng/mL (<4.55)
[2017-04-02 12:48] LABS: TROPONIN I < 0.012 ng/mL
--- NOTE | 2017-04-02 13:57 | PDOC DISCHARGE SUMMARY ---
General - Admit/Disc Date/PCP Admission Date/Primary Care Provider: 04/01/17 19:56 GILBERTO SOTO MD Discharge Date: 04/02/17 - Discharge Diagnosis (1) Non-cardiac chest pain Summary: The patients serial troponins remained negative. This morning she had a Cardiolite stress test which was negative for reversible ischemia. She had normal left ventricular function. (2) History of diverticulitis Summary: The patient has had 3 episodes of diverticulitis. She follows with Dr. Dsouza. She had a CT scan of the abdomen and pelvis which did not reveal any active disease. (3) Hyperlipidemia Summary: She will be started on a statin medication (4) GERD (gastroesophageal reflux disease) Is this a current diagnosis for this admission?: YesSummary: The patient's chest discomfort may be due to esophageal spasm. I am going to place her on Protonix 40 mg twice daily. She will follow-up with her primary care physician next week. - Additional Information Resuscitation Status: Full Code Discharge Diet: Cardiac Discharge Activity: Activity As Tolerated, Balance Activity w/Rest, Slowly Increase Activity Home Medications: Atorvastatin Calcium [Lipitor 40 mg Tablet] 40 mg PO QHS #30 tablet 04/02/17 Pantoprazole Sodium [Protonix] 40 mg PO BID #60 tablet. 04/02/17 History of Present Illness History of Present Illness: YUDELKA LEMUS is a 66 year old female who presented to the emergency room with abdominal pain and chest discomfort. Hospital Course Hospital Course: The patient is an extremely pleasant 66-year-old female. Her past medical history significant for diverticulitis. She has had 3 episodes over the past several months. She follows with Dr. Nieves from gastroenterology. The patient also has known gastroesophageal reflux disease and takes 20 mg of omeprazole at home daily. The patient presented to the emergency room with epigastric pain which radiated into her back in her left shoulder. This was associated with shortness of breath and nausea. She had no episodes of vomiting or diaphoresis. There were no alleviating or exacerbating factors. In the emergency room she had a CT scan of her abdomen and pelvis which was totally unremarkable. She was placed in observation in the hospital. Her serial troponins remained negative. This morning the patient had a Cardiolite stress test performed which revealed no evidence of reversible ischemia. The patient did have some discomfort in her left shoulder blade after she got back from her stress test. This resolved with 1 dose of IV Toradol. At this point I suspect that the patient's symptoms are GI in nature. She is recently had an upper endoscopy as well as a colonoscopy. She will be discharged home today on increased PPI therapy. I will defer to her primary care physician if he wants any further cardiology workup. At this point maximum hospitalization hospital benefit has been reached. She will be discharged home today in stable condition. Of note she was found to have elevated cholesterol and she was started on a statin medication. Physical Exam Vital Signs: Temp Pulse Resp BP Pulse Ox 98.0 F 85 20 150/66 H 99 04/02/17 11:32 04/02/17 11:32 04/02/17 11:32 04/02/17 11:32 04/02/17 11:32 Intake & Output 04/01/17 04/02/17 04/03/17 06:59 06:59 06:59 Weight 61.1 kg General appearance: PRESENT: no acute distress, well-developed, well-nourished Head exam: PRESENT: atraumatic, normocephalic Mouth exam: PRESENT: moist, tongue midline Respiratory exam: PRESENT: clear to auscultation amber. ABSENT: rales, rhonchi, wheezes Cardiovascular exam: PRESENT: RRR. ABSENT: diastolic murmur, rubs, systolic murmur GI/Abdominal exam: PRESENT: normal bowel sounds, soft. ABSENT: distended, guarding, mass, organolmegaly, rebound, tenderness Extremities exam: PRESENT: full ROM. ABSENT: calf tenderness, clubbing, pedal edema Neurological exam: PRESENT: alert, awake, oriented to person, oriented to place , oriented to time, oriented to situation, CN II-XII grossly intact. ABSENT: motor sensory deficit Psychiatric exam: PRESENT: appropriate affect, normal mood. ABSENT: homicidal ideation, suicidal ideation Skin exam: PRESENT: dry, intact, warm. ABSENT: cyanosis, rash Results Laboratory Results: 04/01/17 04/02/17 22:35 04:06 Triglycerides 211 H Cholesterol 202.20 H LDL Cholesterol Direct 125 H VLDL Cholesterol 42.2 H HDL Cholesterol 38 L Urine Color YELLOW Urine Appearance CLEAR Urine pH 6.0 Ur Specific Echo 1.049 Urine Protein NEGATIVE Urine Glucose (UA) NEGATIVE Urine Ketones NEGATIVE Urine Blood NEGATIVE Urine Nitrite NEGATIVE Ur Leukocyte Esterase NEGATIVE Ur Squamous Epith Cells RARE 04/01/17 04/02/17 04/02/17 22:12 04:06 04:06 Creatine Kinase 42 CK-MB (CK-2) 0.81 0.91 Troponin I < 0.012 < 0.012 04/02/17 11:38 Creatine Kinase CK-MB (CK-2) 0.71 Troponin I < 0.012 Impressions: Chest X-Ray 04/01/17 15:19 IMPRESSION: NO SIGNIFICANT RADIOGRAPHIC FINDING IN THE CHEST. Abdomen/Pelvis CT 04/01/17 17:24 IMPRESSION: 1. There is a small pericardial effusion. 2. There is diverticulosis coli. There is no evidence of acute inflammation.
[2017-04-02 15:50] VITALS: BP 112/62
--- NOTE | 2017-04-02 17:33 | EKG REPORT ---
SEVERITY:- NORMAL ECG - SINUS RHYTHM : Confirmed by: Delfino Coats 02-Apr-2017 17:32:24
== END 2017-04-02 16:15 | disposition home or self-care (01) ==
LOC: ER 14:00 → EH 19:56 → 4N 22:25
PROVIDERS: ADMIT Internal Medicine; ATTEND Internal Medicine
DX: R07.89 Other chest pain (principal); K57.30 Diverticulosis of large intestine without perforation or abscess without bleeding; E78.5 Hyperlipidemia, unspecified; K21.9 Gastro-esophageal reflux disease without esophagitis; R06.02 Shortness of breath; R19.7 Diarrhea, unspecified; R29.898 Other symptoms and signs involving the musculoskeletal system; Z79.899 Other long term (current) drug therapy; Z82.49 Family history of ischemic heart disease and other diseases of the circulatory system; Z90.11 Acquired absence of right breast and nipple; Z85.3 Personal history of malignant neoplasm of breast; Z87.19 Personal history of other diseases of the digestive system
CPT/HCPCS: 93005; 99285; 96374; 96375; 36415 ×2; 82553 ×2; 82550 ×2; 83690; 85025; 85610; 85730; 80053; 81001; 84484 ×2; 80061; 93017; 71020; 78452; 74177; 93010; G0378 ×3; A9500; J2785; A9270 ×5; J1644 ×2; J3490 ×3; J1885; J2270; J2405; J0280; Q9969

== ENCOUNTER → 2020-11-01 | Outpatient (CLI) | payer MEDICARE, OTHER ==
[~2020-11-01] MED LIST changes: -AMINOPHYLLINE INJ/PF 250 MG/10 ML SDV IV ONE; +COVID-19 VACCINE (PFIZER)/PF 30 MCG/0.3 ML VIAL IM ONE; +EPINEPHRINE INJ/PF 1 MG/1 ML AMPULE IM PRN; -REGADENOSON INJ 0.4 MG/5 ML DISP.SYRIN IV ONE
== END ==
LOC: EMPHEALTH 06:00
PROVIDERS: ATTEND Internal Medicine
DX: Z23 Encounter for immunization (principal)
CPT/HCPCS: 91300